=== PATIENT | male | born 1985 | race African-American/Black ===

== ENCOUNTER 2022-09-06 10:02 | Emergency (ER) | payer SELFPAY ==
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
[2022-09-06] MEDS ORDERED: ASPIRIN 81 MG CHEWABLE TABLET ONE (11:04)
[2022-09-06 11:07] LABS: Hematocrit 42.2 % (39.6-49.0); MCV 89.4 fL (80-100); MPV 7.9 fL (7.6-11.3); RBC Red Blood Cell Count 4.73 M/uL (4.33-5.43)
[2022-09-06 11:32] LABS: Bilirubin Direct 0.2 mg/dL (0-0.2); Bilirubin Total 0.6 mg/dL (0.2-1.0); Magnesium 1.9 mg/dL (1.6-2.4); Potassium 3.8 mmol/L (3.5-5.1); Protein, Total 7.1 g/dL (6.4-8.2); Thyroid Stimulating Hormone 0.175 uIU/mL (0.358-3.740); Troponin High Sensitivity 6.1 pg/mL (<58.9)
[2022-09-06 11:34] LABS: Protime INR 1.06
--- NOTE | 2022-09-06 11:35 | RAD REPORT ---
EXAM DESCRIPTION: Izzy Single View09/06/2022 11:08 am CLINICAL HISTORY: Chest pain COMPARISON: none FINDINGS: The lungs appear clear of acute infiltrate. The heart is normal size IMPRESSION: No acute abnormalities displayed
[2022-09-06 11:49] LABS: Urine Blood Negative (Negative); Urine Glucose Negative (Negative); Urine Protein Negative (Negative); Urine Specific Gravity 1.015 (1.005-1.030)
[2022-09-06] MEDS ORDERED: NA CHLORIDE 0.9% 1,000 ML ONE (11:55)
[2022-09-06 12:28] LABS: Barbiturates NEGATIVE (NEGATIVE); Benzodiazepines NEGATIVE (NEGATIVE); Cocaine NEGATIVE (NEGATIVE); METHAMPHETAM NEGATIVE (NEGATIVE); Methadone NEGATIVE (NEGATIVE); Opiates NEGATIVE (NEGATIVE); Phencyclidine NEGATIVE (NEGATIVE); THC Cannibis POSITIVE (NEGATIVE)
--- NOTE | 2022-09-06 14:21 | EKG ---
Test Date: 2022-09-06 Test Time: 11:04:11 Sheet Turner: KATHARINA MEASUREMENT RESULTS: Intervals: Rate: 73 OH: 110 QRSD: 94 QT: 384 QTc: 423 [place]: P: 75 OH: 110 QRS: 88 T: 84 INTERPRETIVE STATEMENTS: Sinus rhythm with short OH Nonspecific ST abnormality Abnormal ECG No previous ECG available for comparison Electronically Signed On 09-06-22 14:20:46 INTERNET PROJECT MANAGER by Medhat Garcia
--- NOTE | 2022-09-06 14:59 | ER ---
Nurse's Notes [facility] Name: Jean Marie Murphy Age: 36 yrs Sex: Male : 1985 Arrival Date: 09/06/2022 Time: 10:04 Bed 14 Private MD: Diagnosis: Chest pain, unspecified;Palpitations Presentation: 09/06 10:23 Chief complaint: Patient states: R sided body pain, R sided arm/leg numbness, slow to ll1 respond but oriented, R sided CP with palpitations at times. + SOB and fatigue. No known fever. Coronavirus screen: Vaccine status: Patient reports being unvaccinated. Client denies travel out of the [place] in the last 14 days. difficulty breathing, fatigue, headache, muscle pain, shortness of breath, Client presents with at least one sign or symptom that may indicate coronavirus-19. Standard/surgical mask placed on the client. Ebola Screen: Patient denies travel to an Ebola-affected area in the 21 days before illness onset. Initial Sepsis Screen: Does the patient meet any 2 criteria? No. Patient's initial sepsis screen is negative. Does the patient have a suspected source of infection? No. Patient's initial sepsis screen is negative. Risk Assessment: Do you want to hurt yourself or someone else? Patient reports no desire to harm self or others. Onset of symptoms was August 30, 2022. 10:23 Method Of Arrival: Ambulatory ll1 10:23 Acuity: DRU 3 ll1 Triage Assessment: 15:19 General: Appears in no apparent distress. comfortable, Behavior is calm, cooperative, kr3 appropriate for age. Pain:. Respiratory: Onset: The symptoms/episode began/occurred. Respiratory:. 15:20 Respiratory: the patient has mild shortness of breath. kr3 Historical: - Allergies: 10:20 No Known Allergies; ll1 - PMHx: 10:20 None; ll1 - PSHx: 10:20 None; ll1 - Immunization history:: Client reports having NOT received the Covid vaccine. Flu vaccine status is unknown. - Social history:: Smoking status: Patient/guardian denies using tobacco. Screenin:13 [facility] ED Fall Risk Assessment (Adult) History of falling in the last 3 months, kr3 including since admission No falls in past 3 months (0 pts) Confusion or Disorientation No (0 pts) Intoxicated or Sedated No (0 pts) Impaired Gait No (0 pts) Mobility Assist Device Used No (0 pt) Altered Elimination No (0 pt) Score/Fall Risk Level 0 - 2 = Low Risk Oriented to surroundings, Maintained a safe environment, Educated pt \T\ family on fall prevention, incl call for assistance when getting out of bed, Hourly rounding (assess needs \T\ fall precautionary measures) done. Abuse screen: Denies threats or abuse. Nutritional screening: No deficits noted. Tuberculosis screening: No symptoms or risk factors identified. Assessment: 10:34 General: Appears in no apparent distress. uncomfortable, Behavior is calm, cooperative, kr3 appropriate for age. Neuro: Level of Consciousness is awake, alert, obeys commands, Oriented to person, place, time, situation. Cardiovascular: Patient's skin is warm and dry. Respiratory: Airway is patent Respiratory effort is even, unlabored, Respiratory pattern is regular, symmetrical. GI: Abdomen is flat, non-distended. : No signs and/or symptoms were reported regarding the genitourinary system. EENT: No signs and/or symptoms were reported regarding the EENT system. Derm: Skin is intact, is healthy with good turgor. 11:35 Reassessment: Patient appears in no apparent distress at this time. Patient and/or kr3 family updated on plan of care and expected duration. Pain level reassessed. Patient is alert, oriented x 3, equal unlabored respirations, skin warm/dry/pink. 12:30 Reassessment: Patient appears in no apparent distress at this time. Patient and/or kr3 family updated on plan of care and expected duration. Pain level reassessed. Patient is alert, oriented x 3, equal unlabored respirations, skin warm/dry/pink. 14:30 Reassessment: Patient appears in no apparent distress at this time. Patient and/or kr3 family updated on plan of care and expected duration. Pain level reassessed. Patient is alert, oriented x 3, equal unlabored respirations, skin warm/dry/pink. 15:18 Reassessment: Patient appears in no apparent distress at this time. Patient and/or kr3 family updated on plan of care and expected duration. Pain level reassessed. Patient is alert, oriented x 3, equal unlabored respirations, skin warm/dry/pink. 15:19 Respiratory: Breath sounds are clear bilaterally. kr3 15:19 Cardiovascular: Rhythm is regular. kr3 Vital Signs: 10:23 BP 127 / 85; Pulse 85; Resp 16; Temp 98.4; Pulse Ox 97% ; Weight 72.57 kg; Height 5 ft. ll1 8 in. (172.72 cm); Pain 5/10; 11:34 BP 122 / 71; Pulse 62; Resp 18; Pulse Ox 96% on R/A; kr3 12:30 BP 123 / 66; Pulse 59; Resp 18; Pulse Ox 98% on R/A; kr3 13:30 BP 112 / 76; Pulse 60; Resp 18; Pulse Ox 97% on R/A; kr3 14:30 BP 114 / 75; Pulse 55; Resp 18; Pulse Ox 97% on R/A; kr3 15:17 BP 106 / 78; Pulse 62; Resp 18; Pulse Ox 98% on R/A; kr3 10:23 Body Mass Index 24.33 (72.57 kg, 172.72 cm) 1 ED Course: 10:04 Patient arrived in ED. mr 10:17 Jerardo Domínguez, SALLIE is PHCP. pm1 10:17 Nicolás Bangura MD is Attending Physician. pm1 10:26 Triage completed. ll1 10:26 Arm band placed on Patient placed in an exam room, on a stretcher. ll1 10:29 Juliet Biswas, SHE is Primary Nurse. kr3 10:35 Bed in low position. Call light in reach. Side rails up X 1. kr3 10:57 Basic Metabolic Panel Sent. bc6 10:57 CBC with Diff Sent. bc6 10:57 D-Dimer Sent. bc6 10:57 LFT's Sent. bc6 10:57 Magnesium Sent. bc6 10:57 Troponin HS Sent. bc6 10:57 Initial lab(s) drawn, by me, sent to lab. Inserted saline lock: 20 gauge in right bc6 forearm, using aseptic technique. 11:10 XRAY Chest (1 view) In Process Unspecified. EDMS 11:51 UDS Sent. kr3 15:18 No provider procedures requiring assistance completed. IV discontinued, intact, kr3 bleeding controlled, No redness/swelling at site. Pressure dressing applied. Administered Medications: 11:56 Drug: NS 0.9% 1000 ml Route: IV; Rate: 1000 ml; Site: left forearm; kr3 15:15 Follow up: Response: No adverse reaction; IV Status: Completed infusion; IV Intake: kr3 1000ml Medication: 15:20 VIS not applicable for this client. kr3 Intake: 15:15 IV: 1000ml; Total: 1000ml. kr3 Outcome: 14:58 Discharge ordered by MD. pm1 15:15 Patient left the ED. kj1 15:19 Discharged to home ambulatory. kr3 15:19 Condition: stable 15:19 Discharge instructions given to patient, Instructed on discharge instructions, follow up and referral plans. Demonstrated understanding of instructions, follow-up care. Signatures: Dispatcher [employer] EDMS Zaira Tracy Patrick, SALLIE [employer]CH[employer] ARMAMENT pm1 Twila West kj1 Mary Anand, RN RN ll1 Juliet Biswas RN RN kr3 Deedee Zhao [facility]
--- NOTE | 2022-09-06 14:59 | EDPHYS ---
Physician Documentation [facility] Name: Jena Marie Murphy Age: 36 yrs Sex: Male : 1985 Arrival Date: 09/06/2022 Time: 10:04 Bed 14 Private MD: ED Physician Nicolás Bangura HPI: 09/06 10:45 This 36 yrs old Black Male presents to ER via Ambulatory with complaints of Chest Pain, pm1 Shortness Of Breath, Palpitations. 10:45 The patient or guardian reports chest pain that is located primarily in the anterior pm1 aspect of right upper chest and right breast. The pain does not radiate. Associated signs and symptoms: Pertinent positives: palpitations, shortness of breath, numbness to right side of body. The chest pain is described as aching. Modifying factors: The symptoms are alleviated by nothing. the symptoms are aggravated by nothing. Severity of pain: in the emergency department the pain is actually worse. The patient has not experienced similar symptoms in the past. The patient has not recently seen a physician. Ongoing for two weeks. Historical: - Allergies: 10:20 No Known Allergies; ll1 - PMHx: 10:20 None; ll1 - PSHx: 10:20 None; ll1 - Immunization history:: Client reports having NOT received the Covid vaccine. Flu vaccine status is unknown. - Social history:: Smoking status: Patient/guardian denies using tobacco. ROS: 10:45 Constitutional: Negative for fever, chills, and weight loss, Eyes: Negative for injury, pm1 pain, redness, and discharge. 10:45 Abdomen/GI: Negative for abdominal pain, nausea, vomiting, diarrhea, and constipation, Back: Negative for injury and pain, MS/Extremity: Negative for injury and deformity, Skin: Negative for injury, rash, and discoloration. 10:45 Cardiovascular: Positive for chest pain, of the right breast and anterior aspect of right upper chest, palpitations, Negative for edema. 10:45 Respiratory: Positive for shortness of breath. 10:45 Neuro: Positive for numbness, of the right arm and right leg, Negative for headache, weakness. 10:45 All other systems are negative. Exam: 10:45 Constitutional: This is a well developed, well nourished patient who is awake, alert, pm1 and in no acute distress. Head/Face: Normocephalic, atraumatic. 10:45 Back: No spinal tenderness. No costovertebral tenderness. Full range of motion. Skin: Warm, dry with normal turgor. Normal color with no rashes, no lesions, and no evidence of cellulitis. 10:45 MS/ Extremity: Pulses equal, no cyanosis. Neurovascular intact. Full, normal range of motion. 10:45 Eyes: Exam is negative for acute changes, Periorbital structures: no acute changes, Extraocular movements: no acute changes, Conjunctiva: no acute changes, no injection. 10:45 ENT: Exam is negative for acute changes, Mouth: no acute changes, Lips: normal, moist, Oral mucosa: normal, pink and intact, moist. 10:45 Chest/axilla: Palpation: tenderness, that is mild, of the anterior aspect of right upper chest and right breast, that totally reproduces the patient's complaints. 10:45 Cardiovascular: Exam negative for acute changes, Rate: normal, Rhythm: regular, Pulses: no pulse deficits are appreciated, Heart sounds: normal, normal S1and S2. 10:45 Respiratory: Exam negative for acute changes, respiratory distress, shortness of breath, Breath sounds: are clear throughout. 10:45 Abdomen/GI: Exam negative for acute changes, Inspection: abdomen appears normal, Palpation: abdomen is soft and non-tender, in all quadrants. 10:45 Neuro: Exam negative for acute changes, Orientation: is normal, to person, place, time \T\ situation. Mentation: is normal, Cranial nerves: CN II- XII are normal as tested, Cerebellar function: normal finger to nose testing, able to perform alternating rapid hand movements, Motor: moves all fours, strength is 5/5 in all extremities, Sensation: no obvious gross deficits. Vital Signs: 10:23 BP 127 / 85; Pulse 85; Resp 16; Temp 98.4; Pulse Ox 97% ; Weight 72.57 kg; Height 5 ft. ll1 8 in. (172.72 cm); Pain 5/10; 11:34 BP 122 / 71; Pulse 62; Resp 18; Pulse Ox 96% on R/A; kr3 12:30 BP 123 / 66; Pulse 59; Resp 18; Pulse Ox 98% on R/A; kr3 13:30 BP 112 / 76; Pulse 60; Resp 18; Pulse Ox 97% on R/A; kr3 14:30 BP 114 / 75; Pulse 55; Resp 18; Pulse Ox 97% on R/A; kr3 15:17 BP 106 / 78; Pulse 62; Resp 18; Pulse Ox 98% on R/A; kr3 10:23 Body Mass Index 24.33 (72.57 kg, 172.72 cm) ll1 MDM: 10:31 Patient medically screened. pm1 14:54 Data reviewed: vital signs. pm1 14:55 Differential diagnosis: NSTEMI, STEMI, Nonspecific chest pain, Chest wall pain, PE, pm1 hyperthyroidism, palpitations, drug abuse. 14:56 Counseling: I had a detailed discussion with the patient and/or guardian regarding: the pm1 historical points, exam findings, and any diagnostic results supporting the discharge/admit diagnosis, lab results, radiology results, the need for outpatient follow up, to return to the emergency department if symptoms worsen or persist or if there are any questions or concerns that arise at home. 14:56 ED course: Discussed with the patient the need for additional work up, and follow up pm1 with PCP/endocrinology on his abnormal TSH result. His palpations are a possible a result of his low TSH level. 14:56 Test considered but Not performed: Other Details CT brain. Patient with normal neuro pm1 examination and discussed with patient that he does not have a presentation of a stroke and his symptoms have been ongoing for 2 weeks. 09/06 10:45 Order name: Basic Metabolic Panel; Complete Time: 11:47 pm09/06 10:45 Order name: CBC with Diff; Complete Time: 11:09/06 10:45 Order name: D-Dimer; Complete Time: 11:47 pm09/06 10:45 Order name: LFT's; Complete Time: 11:47 pm09/06 10:45 Order name: Magnesium; Complete Time: 11:47 pm09/06 10:45 Order name: Troponin HS; Complete Time: 11:47 pm09/06 10:45 Order name: XRAY Chest (1 view); Complete Time: 11:47 pm09/06 10:45 Order name: EKG; Complete Time: 10:46 pm09/06 10:45 Order name: TSH; Complete Time: 11:47 pm09/06 10:45 Order name: UDS; Complete Time: 12:48 pm1 09/06 11:01 Order name: PT-INR; Complete Time: 11:47 pm1 09/06 11:49 Order name: Urine Dipstick-Ancillary; Complete Time: 11:50 EDMS 09/06 13:26 Order name: Troponin High Sensitivity; Complete Time: 14:55 pm1 09/06 10:45 Order name: Cardiac monitoring; Complete Time: 11:19 pm1 09/06 10:45 Order name: EKG - Nurse/Tech; Complete Time: 11:19 pm09/06 10:45 Order name: IV Saline Lock; Complete Time: 10:57 pm1 09/06 10:45 Order name: Labs collected and sent; Complete Time: 10:57 pm1 09/06 10:45 Order name: O2 Per Protocol; Complete Time: 11:19 pm09/06 10:45 Order name: O2 Sat Monitoring; Complete Time: 11:19 pm1 09/06 10:45 Order name: Urine Dipstick-Ancillary (obtain specimen); Complete Time: 11:44 pm1 EC:07 Rate is 73 beats/min. Rhythm is regular, Sinus Rhythm. QRS Chrisney is Normal. QRS interval pm1 is normal. QT interval is normal. No Q waves. T waves are Normal. No ST changes noted. Clinical impression: Sinus rhythm with short ME, nonspecific ST abnormality. Administered Medications: 11:56 Drug: NS 0.9% 1000 ml Route: IV; Rate: 1000 ml; Site: left forearm; kr3 15:15 Follow up: Response: No adverse reaction; IV Status: Completed infusion; IV Intake: kr3 1000ml Disposition Summary: 09/06/22 14:58 Discharge Ordered Location: Home pm1 Problem: new pm1 Symptoms: have improved pm1 Condition: Stable pm1 Diagnosis - Chest pain, unspecified pm1 - Palpitations pm1 Followup: pm1 - With: Emergency Department - When: As needed - Reason: Worsening of condition Followup: pm1 - With: Private Physician - When: 2 - 3 days - Reason: Recheck today's complaints, Continuance of care, Re-evaluation by your physician Discharge Instructions: - Discharge Summary Sheet pm1 - Nonspecific Chest Pain, Adult pm1 - Palpitations pm1 Forms: - Medication Reconciliation Form pm1 - Thank You Letter pm1 - Antibiotic Education pm1 - Prescription Opioid Use pm1 Signatures: Dispatcher [employer] Jerardo Méndez, SALLIE SQL REPORT ANALYST pm1 Mary Anand RN RN ll1 Juliet Biswas RN RN kr3
[2022-09-06 15:40] VITALS: TEMP 98.4
[2022-09-06 15:42] VITALS: BP 123/66; O2SAT 98
== END 2022-09-06 15:15 | disposition home or self-care (01) ==
LOC: ER 10:02
DX: R07.9 Chest pain, unspecified (principal); R00.2 Palpitations
CPT/HCPCS: 36415; 71045; 80048; 80076; 80307; 81003; 83735; 84443; 84484; 85025; 85379; 85610; 93005; 96360; 96361; 99284; J7030